=== PATIENT | male | born 1970 | race Caucasian/White ===

== ENCOUNTER → 2019-01-01 | Outpatient (CLI) | payer BC ==
[2015-11-10 12:54] VITALS: BP 147/72
[~2019-01-01] MED LIST: ATORVASTATIN CA20 MG PO; EPA FISH OIL1000 MG PO
== END ==
LOC: RAD 10:03
DX: M25.552 Pain in left hip (principal)

== ENCOUNTER → 2019-11-12 | Outpatient (CLI) | payer BC ==
[2015-11-10 12:54] VITALS: BP 147/72
== END ==
LOC: RAD 14:12
DX: M16.12 Unilateral primary osteoarthritis, left hip (principal); M47.816 Spondylosis without myelopathy or radiculopathy, lumbar region; M25.562 Pain in left knee

== ENCOUNTER 2020-07-11 13:24 | Emergency (ER) | payer BC ==
[~2020-07-11] VITALS: Ht 172.7 cm; Wt 120.5 kg
[2020-07-11 13:32] VITALS: BP 158/93
[2020-07-11 14:00] LABS: EOS # 0.4 (0.04-0.40); EOS % 5.9 % (0.0-4.0); HEMATOCRIT 46.7 % (42.0-52.0); HEMOGLOBIN 15.4 g/dL (13.5-18.0); LYMPH# 2.4 (1.50-4.00); MEAN CELL VOLUME 90 fl (78-100); MEAN CORPUSCULAR HEMOGLOBIN 30 pg (27-31); MEAN CORPUSCULAR HGB CONC 33 g/dL (33-37); MEAN PLATELET VOLUME 8.9 fl (7.4-10.4); MONO # 0.8 (0.20-0.80); NEU # 3.1 (1.40-6.50); PLATELET COUNT 404 K/mm3 (130-400); RED BLOOD COUNT 5.18 M/mm3 (4.20-5.60); RED CELL DISTRIBUTION WIDTH 13.3 % (11.5-14.5); WHITE BLOOD COUNT 6.8 K/mm3 (4.8-10.8)
[2020-07-11 14:10] LABS: ALBUMIN 3.7 g/dL (3.5-5.0); POTASSIUM 3.9 mmol/L (3.5-5.1); SODIUM 141 mmol/L (136-145)
[2020-07-11 14:11] LABS: CALCIUM 9.1 mg/dL (8.3-10.5)
[2020-07-11 14:12] LABS: GLUCOSE 88 mg/dL (75-110)
[2020-07-11 14:13] LABS: TOTAL PROTEIN 7.1 g/dL (6.4-8.3)
[2020-07-11 14:14] LABS: CARBON DIOXIDE 29 mmol/L (22-29); TOTAL BILIRUBIN 0.5 mg/dL (0.2-1.2)
[2020-07-11 14:18] LABS: AST-SGOT 21 U/L (5-34)
[2020-07-11 14:19] LABS: ALT/SGPT 37 U/L (0-55)
[2020-07-11 14:55] LABS: D-DIMER 0.04 mg/L FEU (0.15-0.50)
[2020-07-11 15:03] LABS: TROPONIN-I < 0.03 ng/mL (<0.030)
== END 2020-07-11 13:59 | disposition left against medical advice (07) ==
LOC: ED 13:24
PROVIDERS: Nurse Practitioner
DX: R69 Illness, unspecified (principal); Z88.0 Allergy status to penicillin

== ENCOUNTER → 2020-10-24 | Outpatient (REF) | LOC: LAB 06:51 | DX: Z00.00 Encounter for general adult medical examination without abnormal findings (principal); E78.5 Hyperlipidemia, unspecified; R73.03 Prediabetes ==

== ENCOUNTER → 2021-03-19 | Outpatient (CLI) | payer BC | LOC: LAB 17:35 | DX: Z20.822 Contact with and (suspected) exposure to COVID-19 (principal) ==

== ENCOUNTER → 2021-12-10 | Outpatient (REF) | LOC: LAB 07:38 → EDSTATUS 07:44 | DX: Z00.00 Encounter for general adult medical examination without abnormal findings (principal); E78.5 Hyperlipidemia, unspecified; R73.03 Prediabetes ==

== ENCOUNTER → 2024-03-12 | Outpatient (CLI) | payer BC ==
[~2024-03-12] MED LIST changes: +ADVIL 200MG TA200 MG PO; -EPA FISH OIL1000 MG PO; +FISH OIL 1,0001 EAC1 PO; +ZYRTEC10 M3 PO
[2024-03-12 14:33] LABS: BASO # 0.06 K/mm3 (0.02-0.10); EOS # 0.44 K/mm3 (0.04-0.40); EOS % 5.7 % (0.0-4.0); HEMATOCRIT 46.1 % (42.0-52.0); HEMOGLOBIN 15.5 g/dL (13.5-18.0); LYMPH# 2.38 K/mm3 (1.50-4.00); MEAN CELL VOLUME 89 fl (78-100); MEAN CORPUSCULAR HEMOGLOBIN 30 pg (27-31); MEAN CORPUSCULAR HGB CONC 34 g/dL (33-37); MEAN PLATELET VOLUME 8.6 fl (7.4-10.4); MONO # 0.67 K/mm3 (0.20-0.80); PLATELET COUNT 441 K/mm3 (130-400); RED CELL DISTRIBUTION WIDTH 12.9 % (11.5-14.5); WHITE BLOOD COUNT 7.8 K/mm3 (4.8-10.8)
[2024-03-12 14:48] LABS: ALBUMIN 3.9 g/dL (3.5-5.0)
[2024-03-12 14:49] LABS: CALCIUM 9.4 mg/dL (8.3-10.5)
[2024-03-12 14:51] LABS: TOTAL PROTEIN 7.5 g/dL (6.4-8.3)
[2024-03-12 14:53] LABS: TOTAL BILIRUBIN 0.4 mg/dL (0.2-1.2)
== END ==
LOC: LAB 14:18
PROVIDERS: Family Medicine
DX: Z12.5 Encounter for screening for malignant neoplasm of prostate (principal); J30.9 Allergic rhinitis, unspecified; E78.5 Hyperlipidemia, unspecified; R73.03 Prediabetes